=== PATIENT | male | born 1995 | race African-American/Black ===

== ENCOUNTER 2022-07-21 10:39 | Inpatient (IN) | payer OTHER ==
[2022-07-21 11:36] VITALS: BMI 25.2
[2022-07-21] MEDS ORDERED: MAG HYDROX/AL HYDROX/SIMETH 30 ML UNIT-DOSE CUP PO PRN (12:53)
[2022-07-21] MEDS ORDERED: POLYETHYLENE GLYCOL (HEALTHYLAX) 3350 17 GM PACKET PO PRN (12:53)
[2022-07-21] MEDS ORDERED: IBUPROFEN 400 MG TABLET (FP) PO PRN (12:53)
[2022-07-21] MEDS ORDERED: BISMUTH SUBSALICYLATE 524 MG/30 ML PO PRN (12:53)
[2022-07-21] MEDS ORDERED: MAGNESIUM HYDROX 2400MG/30ML ORAL SUSPENSION 30 ML CUP PO PRN (12:53)
[2022-07-21] MEDS ORDERED: ACETAMINOPHEN 325 MG TABLET (FP) PO PRN ×2 (12:53)
[2022-07-21] MEDS ORDERED: NALOXONE HCL (KLOXXADO) 8 MG SPRAY NS PRN (12:53)
[2022-07-21] MEDS ORDERED: ONDANSETRON *ODT* 4 MG TABLET SL PRN (12:53)
[2022-07-21] MEDS ORDERED: BENZOCAINE/MENTHOL (CHLORASEPTIC ) LOZENGE MM PRN (12:53)
[2022-07-21] MEDS ORDERED: DICYCLOMINE HCL 10 MG CAPSULE PO PRN (12:53)
[2022-07-21] MEDS ORDERED: LOPERAMIDE HCL 2 MG CAPSULE PO PRN (12:53)
[2022-07-21] MEDS: METHOCARBAMOL 500 MG TABLET PO PRN (13:58)
[2022-07-21] MEDS: IBUPROFEN 600 MG TABLET (FP) PO PRN (13:58)
[2022-07-21] MEDS: hydrOXYzine PAMOATE 25 MG CAPSULE (FP) PO PRN (13:58)
[2022-07-21] MEDS: chlordiazePOXIDE HCL 25 MG CAPSULE PO PRN (13:59)
[2022-07-21] MEDS ORDERED: ALBUTEROL SO4 HFA INHALER IH PRN (14:05)
[2022-07-21] MEDS: chlordiazePOXIDE HCL 25 MG CAPSULE PO SCH ×2 (18:23→22:24)
[2022-07-21] MEDS: THIAMINE HCL 100 MG TABLET (FP) PO SCH (22:23)
[2022-07-21] MEDS: DIVALPROEX SODIUM 500 MG TABLET E.C. PO SCH (22:23)
[2022-07-21] MEDS: risperiDONE 1 MG TABLET PO SCH (22:23)
[2022-07-21] MEDS: levETIRAcetam XR 750 MG TAB PO SCH (22:25)
[2022-07-21] MEDS: MELATONIN 5 MG TABLETS PO SCH (22:39)
[2022-07-22] MEDS: chlordiazePOXIDE HCL 25 MG CAPSULE PO SCH ×4 (05:56→22:32)
[2022-07-22] MEDS: IBUPROFEN 600 MG TABLET (FP) PO PRN (08:38)
[2022-07-22] MEDS: PRENATAL VITAMINS W/ FOLIC ACID TABLET (FP) PO SCH (10:09)
[2022-07-22] MEDS: risperiDONE 1 MG TABLET PO SCH ×2 (10:10→22:13)
[2022-07-22] MEDS: DIVALPROEX SODIUM 500 MG TABLET E.C. PO SCH ×2 (10:10→22:13)
[2022-07-22] MEDS: hydrOXYzine PAMOATE 25 MG CAPSULE (FP) PO PRN (10:10)
[2022-07-22] MEDS: levETIRAcetam XR 750 MG TAB PO SCH ×2 (10:10→22:14)
[2022-07-22] MEDS: METHOCARBAMOL 500 MG TABLET PO PRN (10:10)
[2022-07-22] MEDS: NICOTINE 10 MG CARTRIDGE (INHALER) IH PRN ×2 (10:13→21:09)
[2022-07-22] MEDS: NICOTINE POLACRILEX 4 MG GUM BUC PRN ×2 (10:48→22:38)
[2022-07-22 11:43] LABS: HEMATOCRIT 33.9 % (35.4-49); HEMOGLOBIN 11.3 GM/dL (11.7-16.9); MCH 26.7 pg (25.7-33.7); MCHC 33.4 g/dl (32.0-35.9); PLATELET COUNT 115 10^3/uL (134-434); RBC 4.25 M/mm3 (4.00-5.60); WHITE BLOOD COUNT 3.6 K/mm3 (4.0-10.0)
[2022-07-22 11:44] LABS: ALBUMIN 3.3 g/dl (3.4-5.0); BLOOD UREA NITROGEN 10.2 mg/dL (7-18); CALCIUM 8.6 mg/dL (8.5-10.1)
[2022-07-22 11:48] LABS: CREATININE 0.8 mg/dL (0.55-1.3)
[2022-07-22 11:49] LABS: BILIRUBIN,TOTAL 0.5 mg/dL (0.2-1); TOT PROT 6.6 g/dl (6.4-8.2)
[2022-07-22] MEDS: THIAMINE HCL 100 MG TABLET (FP) PO SCH (22:13)
[2022-07-22] MEDS: MELATONIN 5 MG TABLETS PO SCH (22:14)
[2022-07-22] MEDS: chlordiazePOXIDE HCL 25 MG CAPSULE PO PRN (22:15)
[2022-07-23] MEDS: NICOTINE 10 MG CARTRIDGE (INHALER) IH PRN ×3 (00:42→18:37)
[2022-07-23] MEDS: NICOTINE POLACRILEX 4 MG GUM BUC PRN ×4 (00:43→21:05)
[2022-07-23] MEDS: IBUPROFEN 600 MG TABLET (FP) PO PRN ×3 (01:12→21:42)
[2022-07-23] MEDS: METHOCARBAMOL 500 MG TABLET PO PRN ×2 (01:12→10:15)
[2022-07-23] MEDS: chlordiazePOXIDE HCL 25 MG CAPSULE PO SCH ×4 (06:38→23:20)
[2022-07-23] MEDS: DIVALPROEX SODIUM 500 MG TABLET E.C. PO SCH ×2 (10:15→21:42)
[2022-07-23] MEDS: levETIRAcetam XR 750 MG TAB PO SCH ×2 (10:15→21:44)
[2022-07-23] MEDS: hydrOXYzine PAMOATE 25 MG CAPSULE (FP) PO PRN ×2 (10:15→20:20)
[2022-07-23] MEDS: PRENATAL VITAMINS W/ FOLIC ACID TABLET (FP) PO SCH (10:15)
[2022-07-23] MEDS: risperiDONE 1 MG TABLET PO SCH ×2 (10:15→23:21)
[2022-07-23 21:31] VITALS: RESP 18
[2022-07-23] MEDS: THIAMINE HCL 100 MG TABLET (FP) PO SCH (21:42)
[2022-07-23] MEDS: MELATONIN 5 MG TABLETS PO SCH (22:27)
[2022-07-24] MEDS ORDERED: chlordiazePOXIDE HCL 10 MG CAPSULE PO PRN
[2022-07-24] MEDS: chlordiazePOXIDE HCL 10 MG CAPSULE PO SCH ×2 (05:00→10:32)
[2022-07-24] MEDS: risperiDONE 1 MG TABLET PO SCH (09:21)
[2022-07-24] MEDS: levETIRAcetam XR 750 MG TAB PO SCH (09:21)
[2022-07-24] MEDS: DIVALPROEX SODIUM 500 MG TABLET E.C. PO SCH (09:21)
[2022-07-24] MEDS: PRENATAL VITAMINS W/ FOLIC ACID TABLET (FP) PO SCH (09:27)
[2022-07-24 20:45] VITALS: BP 120/77; PULSE 108; TEMP 98.2
[2022-07-25] MEDS ORDERED: chlordiazePOXIDE HCL 10 MG CAPSULE PO SCH (05:00)
[2022-07-26] MEDS ORDERED: chlordiazePOXIDE HCL 10 MG CAPSULE PO ONE (05:00)
== END 2022-07-24 23:00 | disposition short-term general hospital (02) | DRG 775 ==
LOC: YASAS 10:39 → Y6N 13:13
PROVIDERS: ADMIT Allergy & Immunology; ATTEND Internal Medicine
PROC: HZ2ZZZZ Detoxification Services for Substance Abuse Treatment (ICD-10-PCS; principal; 2022-07-21)
DX: F10.230 Alcohol dependence with withdrawal, uncomplicated (principal); F13.230 Sedative, hypnotic or anxiolytic dependence with withdrawal, uncomplicated; F17.210 Nicotine dependence, cigarettes, uncomplicated; F20.9 Schizophrenia, unspecified; R56.9 Unspecified convulsions; S89.91XA Unspecified injury of right lower leg, initial encounter; S09.93XA Unspecified injury of face, initial encounter; W19.XXXA Unspecified fall, initial encounter; Y92.232 Corridor of hospital as the place of occurrence of the external cause
CPT/HCPCS: 36415; 80053; 80164; 85027; 86780; 87811; 93005; 93010; C9803-CS; J2794; Q0162; U0003; U0005

== ENCOUNTER 2022-07-24 00:27 | Emergency (ER) | payer OTHER ==
[2022-07-24] MEDS ORDERED: ACETAMINOPHEN 325 MG TABLET (FP) PO ONE (00:59)
[2022-07-24 01:00] VITALS: BP 102/85; PULSE 89; RESP 17; TEMP 97.3; BMI 25.2
== END 2022-07-24 03:42 | disposition home or self-care (01) ==
LOC: JER 00:27
DX: S00.03XA Contusion of scalp, initial encounter (principal); M25.561 Pain in right knee; W01.0XXA Fall on same level from slipping, tripping and stumbling without subsequent striking against object, initial encounter
CPT/HCPCS: 70450-TC; 72125-TC; 73562-TC-RT-FY; 82962; 99285-25

== ENCOUNTER 2022-07-24 09:51 | Inpatient (IN) | payer OTHER ==
[2022-07-24] MEDS ORDERED: LORazepam 2 MG/ML SDV VIAL IVPUSH ONE (10:44)
[2022-07-24 10:50] LABS: BASO % 0.2 % (0-2.0); EOS % 0.7 % (0-4.5); HEMATOCRIT 40.1 % (35.4-49); HEMOGLOBIN 12.9 GM/dL (11.7-16.9); LYMPH % 11.8 % (8-40); MCH 25.8 pg (25.7-33.7); MCHC 32.1 g/dl (32.0-35.9); MEAN CELL VOLUME 80.5 fl (80-96); MEAN PLT VOLUME 9.8 fl (7.5-11.1); MONO % 5.2 % (3.8-10.2); NEUT % 82.1 % (42.8-82.8); PLATELET COUNT 116 10^3/uL (134-434); RBC 4.99 M/mm3 (4.00-5.60); RDW 15.2 % (11.9-15.9); WHITE BLOOD COUNT 7.1 K/mm3 (4.0-10.0)
[2022-07-24 11:12] LABS: ALBUMIN 3.8 g/dl (3.4-5.0); CALCIUM 9.3 mg/dL (8.5-10.1)
[2022-07-24 11:13] LABS: BLOOD UREA NITROGEN 9.5 mg/dL (7-18)
[2022-07-24 11:15] LABS: CREATININE 0.8 mg/dL (0.55-1.3)
[2022-07-24 11:17] LABS: BILIRUBIN,TOTAL 0.2 mg/dL (0.2-1); TOT PROT 7.8 g/dl (6.4-8.2)
[2022-07-24] MEDS ORDERED: SODIUM CHLORIDE 0.9% 500 ML INFUS.BAG IV ONE ×2 (12:19→15:23)
[2022-07-24] MEDS ORDERED: ALBUTEROL SO4 HFA INHALER IH PRN ×2 (12:47→12:54)
[2022-07-24 13:08] LABS: URINE APPEARANCE CLEAR; URINE BILIRUBIN NEGATIVE (NEGATIVE); URINE COLOR YELLOW; URINE GLUCOSE (UA) NEGATIVE (NEGATIVE); URINE KETONE NEGATIVE (NEGATIVE); URINE LEUK ESTERASE NEGATIVE (NEGATIVE); URINE NITRITE NEGATIVE (NEGATIVE); URINE PROTEIN NEGATIVE (NEGATIVE); URINE UROBILINOGEN 0.2 mg/dL (0.2-1.0)
[2022-07-24 13:58] LABS: MAGNESIUM 2.1 mg/dL (1.8-2.4)
[2022-07-24 13:58] LABS: COCAINE, UR NEGATIVE (NEGATIVE); METHADONE, UR NEGATIVE (NEGATIVE); OPIATES, URI NEGATIVE (NEGATIVE); PHENCYCLIDINE,URINE NEGATIVE (NEGATIVE); URINE BARBITURATES NEGATIVE (NEGATIVE)
[2022-07-24 13:59] LABS: PHOSPHOROUS 2.6 mg/dL (2.5-4.9)
[2022-07-24 14:05] LABS: URINE AMPHETAMINES NEGATIVE (NEGATIVE); URINE BENZODIAZEPINES POSITIVE (NEGATIVE)
[2022-07-24] MEDS: D5-1/2NS+10 MEQ KCL - 10 MEQ/1,000 ML INFUS.BAG IV SCH (16:35)
[2022-07-24] MEDS ORDERED: SODIUM CHLORIDE 1,000 ML IV STA (17:08)
[2022-07-24] MEDS ORDERED: THIAMINE HCL 200 MG/2 ML VIAL IVPB ONE (20:24)
[2022-07-24] MEDS ORDERED: THIAMINE HCL 200 MG/2 ML VIAL ONE (20:57)
[2022-07-24] MEDS: DIVALPROEX SODIUM 500 MG TABLET E.C. PO SCH (23:24)
[2022-07-25] MEDS: D5-1/2NS+10 MEQ KCL - 10 MEQ/1,000 ML INFUS.BAG IV SCH ×2 (03:28→14:38)
[2022-07-25 06:13] VITALS: TEMP 97.9
[2022-07-25 08:21] VITALS: BMI 26.6
[2022-07-25] MEDS: DIVALPROEX SODIUM 500 MG TABLET E.C. PO SCH (09:41)
[2022-07-25] MEDS ORDERED: NICOTINE POLACRILEX 2 MG GUM BUC PRN (09:53)
[2022-07-25] MEDS ORDERED: levETIRAcetam 500 MG TABLET (FP) PO SCH (10:00)
[2022-07-25 11:41] LABS: BASO % 0.2 % (0-2.0); EOS % 1.2 % (0-4.5); HEMOGLOBIN 11.3 GM/dL (11.7-16.9); LYMPH % 15.6 % (8-40); MCH 26.2 pg (25.7-33.7); MCHC 33.2 g/dl (32.0-35.9); MEAN CELL VOLUME 79.2 fl (80-96); MEAN PLT VOLUME 9.5 fl (7.5-11.1); MONO % 5.7 % (3.8-10.2); NEUT % 77.3 % (42.8-82.8); PLATELET COUNT 112 10^3/uL (134-434); RBC 4.29 M/mm3 (4.00-5.60); RDW 15.2 % (11.9-15.9); WHITE BLOOD COUNT 7.8 K/mm3 (4.0-10.0)
[2022-07-25 12:19] LABS: ALBUMIN 3.2 g/dl (3.4-5.0)
[2022-07-25 12:20] LABS: BLOOD UREA NITROGEN 4.1 mg/dL (7-18); CREATININE 0.6 mg/dL (0.55-1.3)
[2022-07-25 12:21] LABS: CALCIUM 9.2 mg/dL (8.5-10.1)
[2022-07-25 12:25] LABS: BILIRUBIN,TOTAL 0.4 mg/dL (0.2-1); TOT PROT 6.7 g/dl (6.4-8.2)
[2022-07-25] MEDS: NICOTINE POLACRILEX 2 MG GUM BUC PRN ×2 (12:31→14:38)
[2022-07-25 13:42] VITALS: BP 108/50; PULSE 100; RESP 16
== END 2022-07-25 18:20 | disposition home or self-care (01) | DRG 53 ==
LOC: JER 09:51 → JERBED 11:14 → INTOOBSV 11:14 → OBSVTOIN 12:49 → J5S 23:14 → J7W 07-25 13:52
PROVIDERS: ADMIT Internal Medicine; ATTEND Internal Medicine
DX: G40.901 Epilepsy, unspecified, not intractable, with status epilepticus (principal); F10.251 Alcohol dependence with alcohol-induced psychotic disorder with hallucinations; F20.9 Schizophrenia, unspecified; F17.210 Nicotine dependence, cigarettes, uncomplicated; F10.20 Alcohol dependence, uncomplicated; I95.9 Hypotension, unspecified; F13.10 Sedative, hypnotic or anxiolytic abuse, uncomplicated
CPT/HCPCS: 0241U-QW; 36415; 70450-TC; 71045-TC-FY; 80053; 80177; 80307; 81003; 82550; 82962; 83605; 83735; 84100; 85025; 87086; 93005; 93010; 99285-25; G0378

== ENCOUNTER 2022-08-08 10:20 | Inpatient (IN) | payer OTHER ==
[2022-08-08 11:06] VITALS: BMI 25.2
[2022-08-08] MEDS ORDERED: hydrOXYzine PAMOATE 25 MG CAPSULE (FP) PO PRN (12:31)
[2022-08-08] MEDS ORDERED: ONDANSETRON *ODT* 4 MG TABLET SL PRN (12:31)
[2022-08-08] MEDS ORDERED: MAGNESIUM HYDROX 2400MG/30ML ORAL SUSPENSION 30 ML CUP PO PRN (12:31)
[2022-08-08] MEDS ORDERED: BENZOCAINE/MENTHOL (CHLORASEPTIC ) LOZENGE MM PRN (12:31)
[2022-08-08] MEDS ORDERED: ACETAMINOPHEN 325 MG TABLET (FP) PO PRN ×2 (12:31)
[2022-08-08] MEDS ORDERED: MAG HYDROX/AL HYDROX/SIMETH 30 ML UNIT-DOSE CUP PO PRN (12:31)
[2022-08-08] MEDS ORDERED: diazePAM 5 MG TABLET PO PRN (12:31)
[2022-08-08] MEDS ORDERED: POLYETHYLENE GLYCOL (HEALTHYLAX) 3350 17 GM PACKET PO PRN (12:31)
[2022-08-08] MEDS ORDERED: LOPERAMIDE HCL 2 MG CAPSULE PO PRN (12:31)
[2022-08-08] MEDS ORDERED: BISMUTH SUBSALICYLATE 262 MG/15 ML BTL PO PRN (12:31)
[2022-08-08] MEDS ORDERED: METHOCARBAMOL 500 MG TABLET PO PRN (12:31)
[2022-08-08] MEDS ORDERED: NALOXONE HCL (KLOXXADO) 8 MG SPRAY NS PRN (12:31)
[2022-08-08] MEDS ORDERED: IBUPROFEN 600 MG TABLET (FP) PO PRN (12:31)
[2022-08-08] MEDS ORDERED: DICYCLOMINE HCL 10 MG CAPSULE PO PRN (12:31)
[2022-08-08] MEDS ORDERED: IBUPROFEN 400 MG TABLET (FP) PO PRN (12:31)
[2022-08-08] MEDS ORDERED: ALBUTEROL SO4 HFA INHALER IH PRN (12:45)
[2022-08-08] MEDS: NICOTINE 14 MG/24 HOURS TOPICAL PATCH TD SCH (12:49)
[2022-08-08] MEDS: PRENATAL VITAMINS W/ FOLIC ACID TABLET (FP) PO SCH (12:49)
[2022-08-08] MEDS: diazePAM 5 MG TABLET PO SCH ×2 (17:47→22:01)
[2022-08-08] MEDS: NICOTINE POLACRILEX 2 MG GUM BUC PRN ×2 (18:01→22:02)
[2022-08-08] MEDS ORDERED: MELATONIN 5 MG TABLETS PO SCH (22:00)
[2022-08-08] MEDS ORDERED: THIAMINE HCL 100 MG TABLET (FP) PO SCH (22:00)
[2022-08-08] MEDS: NICOTINE 10 MG CARTRIDGE (INHALER) IH PRN (22:05)
[2022-08-09] MEDS: diazePAM 5 MG TABLET PO SCH ×2 (06:13→10:12)
[2022-08-09] MEDS ORDERED: PANTOPRAZOLE 20 MG TABLET PO SCH (10:00)
[2022-08-09] MEDS: PRENATAL VITAMINS W/ FOLIC ACID TABLET (FP) PO SCH (10:12)
[2022-08-09] MEDS: NICOTINE POLACRILEX 2 MG GUM BUC PRN (10:17)
[2022-08-09 10:40] VITALS: BP 138/71; PULSE 109; RESP 18; TEMP 97.6
[2022-08-09] MEDS: NICOTINE 14 MG/24 HOURS TOPICAL PATCH TD SCH (11:04)
[2022-08-09] MEDS: NICOTINE 10 MG CARTRIDGE (INHALER) IH PRN (11:04)
[2022-08-09] MEDS ORDERED: levETIRAcetam 250 MG TABLET PO SCH (12:30)
[2022-08-10] MEDS ORDERED: diazePAM 5 MG TABLET PO SCH (06:00)
[2022-08-11] MEDS ORDERED: diazePAM 5 MG TABLET PO SCH (06:00)
[2022-08-12] MEDS ORDERED: diazePAM 5 MG TABLET PO ONE (06:00)
== END 2022-08-09 12:22 | disposition left against medical advice (07) | DRG 770 ==
LOC: YASAS 10:20 → Y6N 11:54
PROVIDERS: ADMIT Allergy & Immunology; ATTEND Surgery
PROC: HZ2ZZZZ Detoxification Services for Substance Abuse Treatment (ICD-10-PCS; principal; 2022-08-08)
DX: F10.230 Alcohol dependence with withdrawal, uncomplicated (principal); F12.20 Cannabis dependence, uncomplicated; F17.210 Nicotine dependence, cigarettes, uncomplicated; F20.9 Schizophrenia, unspecified; F41.9 Anxiety disorder, unspecified; J45.909 Unspecified asthma, uncomplicated; Z86.69 Personal history of other diseases of the nervous system and sense organs; Z91.040 Latex allergy status
CPT/HCPCS: C9803-CS; U0003; U0005

== ENCOUNTER 2023-12-18 11:24 | Inpatient (IN) | payer OTHER ==
[2023-12-18 12:47] VITALS: BMI 22.8
[2023-12-18] MEDS ORDERED: chlordiazePOXIDE HCL 25 MG CAPSULE PO PRN (13:10)
[2023-12-18] MEDS ORDERED: DICYCLOMINE HCL 10 MG CAPSULE PO PRN (13:28)
[2023-12-18] MEDS ORDERED: ONDANSETRON *ODT* 4 MG TABLET SL PRN (13:28)
[2023-12-18] MEDS ORDERED: MAG HYDROX/AL HYDROX/SIMETH 30 ML UNIT-DOSE CUP PO PRN (13:28)
[2023-12-18] MEDS ORDERED: POLYETHYLENE GLYCOL (HEALTHYLAX) 3350 17 GM PACKET PO PRN (13:28)
[2023-12-18] MEDS ORDERED: METHOCARBAMOL 500 MG TABLET PO PRN (13:28)
[2023-12-18] MEDS ORDERED: IBUPROFEN 400 MG TABLET (FP) PO PRN (13:28)
[2023-12-18] MEDS ORDERED: ACETAMINOPHEN 325 MG TABLET (FP) PO PRN (13:28)
[2023-12-18] MEDS ORDERED: hydrOXYzine PAMOATE 25 MG CAPSULE (FP) PO PRN (13:28)
[2023-12-18] MEDS ORDERED: MAGNESIUM HYDROX 2400MG/30ML ORAL SUSPENSION 30 ML CUP PO PRN (13:28)
[2023-12-18] MEDS ORDERED: BENZOCAINE/MENTHOL (CHLORASEPTIC ) LOZENGE MM PRN (13:28)
[2023-12-18] MEDS ORDERED: LOPERAMIDE HCL 2 MG CAPSULE PO PRN (13:28)
[2023-12-18] MEDS ORDERED: BISMUTH SUBSALICYLATE 524 MG/30 ML PO PRN (13:28)
[2023-12-18] MEDS ORDERED: BENZONATATE 200 MG CAPSULE PO PRN (13:28)
[2023-12-18] MEDS ORDERED: IBUPROFEN 600 MG TABLET (FP) PO PRN (13:28)
[2023-12-18] MEDS ORDERED: guaiFENesin 600 MG TABLET.ER (FP) PO PRN (13:28)
[2023-12-18] MEDS: NICOTINE POLACRILEX 2 MG GUM BUC PRN (15:16)
[2023-12-18 16:49] VITALS: BP 117/58; PULSE 86; RESP 16; TEMP 97.8
[2023-12-18] MEDS ORDERED: chlordiazePOXIDE HCL 25 MG CAPSULE PO SCH (17:00)
[2023-12-18] MEDS ORDERED: THIAMINE HCL 100 MG TABLET (FP) PO SCH (22:00)
[2023-12-18] MEDS ORDERED: MELATONIN 5 MG TABLETS PO SCH (22:00)
[2023-12-19] MEDS ORDERED: PRENATAL VITAMINS W/ FOLIC ACID TABLET (FP) PO SCH (10:00)
[2023-12-19] MEDS ORDERED: PNEUMOC 20-VAL CONJ-DIP CRM/PF 0.5 ML SYRINGE IM ONE (12:00)
[2023-12-19] MEDS ORDERED: FLU VACCINE (FLULAVAL) PF 60 MCG/0.5 ML SYRINGE 2023-2024 IM ONE (12:00)
[2023-12-20] MEDS ORDERED: chlordiazePOXIDE HCL 25 MG CAPSULE PO SCH (05:00)
[2023-12-21] MEDS ORDERED: chlordiazePOXIDE HCL 10 MG CAPSULE PO PRN
[2023-12-21] MEDS ORDERED: chlordiazePOXIDE HCL 10 MG CAPSULE PO SCH (05:00)
[2023-12-22] MEDS ORDERED: chlordiazePOXIDE HCL 10 MG CAPSULE PO SCH (05:00)
[2023-12-23] MEDS ORDERED: chlordiazePOXIDE HCL 10 MG CAPSULE PO ONE (05:00)
== END 2023-12-18 16:47 | disposition left against medical advice (07) | DRG 770 ==
LOC: YASAS 11:24 → Y6N 14:01
PROVIDERS: ADMIT Allergy & Immunology; ATTEND Surgery
PROC: HZ2ZZZZ Detoxification Services for Substance Abuse Treatment (ICD-10-PCS; principal; 2023-12-18)
DX: F10.230 Alcohol dependence with withdrawal, uncomplicated (principal); F14.20 Cocaine dependence, uncomplicated; F17.210 Nicotine dependence, cigarettes, uncomplicated; G40.909 Epilepsy, unspecified, not intractable, without status epilepticus; Z87.09 Personal history of other diseases of the respiratory system; Z56.0 Unemployment, unspecified
CPT/HCPCS: 36415; 80307; 93005; 93010

== ENCOUNTER 2024-01-14 11:20 | Inpatient (IN) | payer OTHER ==
[2024-01-14 13:12] VITALS: BMI 25.4
[2024-01-14] MEDS ORDERED: IBUPROFEN 400 MG TABLET (FP) PO PRN (14:07)
[2024-01-14] MEDS ORDERED: NALOXONE HCL (KLOXXADO) 8 MG SPRAY NS PRN (14:07)
[2024-01-14] MEDS ORDERED: POLYETHYLENE GLYCOL (HEALTHYLAX) 3350 17 GM PACKET PO PRN (14:07)
[2024-01-14] MEDS ORDERED: hydrOXYzine PAMOATE 25 MG CAPSULE (FP) PO PRN (14:07)
[2024-01-14] MEDS ORDERED: BENZOCAINE/MENTHOL (CHLORASEPTIC ) LOZENGE MM PRN (14:07)
[2024-01-14] MEDS ORDERED: MAG HYDROX/AL HYDROX/SIMETH 30 ML UNIT-DOSE CUP PO PRN (14:07)
[2024-01-14] MEDS ORDERED: NALOXONE HCL 0.4 MG/ML VIAL IM PRN (14:07)
[2024-01-14] MEDS ORDERED: IBUPROFEN 600 MG TABLET (FP) PO PRN (14:07)
[2024-01-14] MEDS ORDERED: BISMUTH SUBSALICYLATE 262 MG/15 ML BTL PO PRN (14:07)
[2024-01-14] MEDS ORDERED: BENZONATATE 200 MG CAPSULE PO PRN (14:07)
[2024-01-14] MEDS ORDERED: METHOCARBAMOL 500 MG TABLET PO PRN (14:07)
[2024-01-14] MEDS ORDERED: guaiFENesin 600 MG TABLET.ER (FP) PO PRN (14:07)
[2024-01-14] MEDS ORDERED: DICYCLOMINE HCL 10 MG CAPSULE PO PRN (14:07)
[2024-01-14] MEDS ORDERED: LOPERAMIDE HCL 2 MG CAPSULE PO PRN (14:07)
[2024-01-14] MEDS ORDERED: chlordiazePOXIDE HCL 25 MG CAPSULE PO PRN (15:41)
[2024-01-14] MEDS: ALBUTEROL SO4 HFA INHALER IH SCH (15:55)
[2024-01-14] MEDS: NICOTINE POLACRILEX 4 MG GUM BUC PRN (17:40)
[2024-01-14] MEDS: chlordiazePOXIDE HCL 25 MG CAPSULE PO SCH (17:41)
[2024-01-14] MEDS: ACETAMINOPHEN 325 MG TABLET (FP) PO PRN (18:18)
[2024-01-14] MEDS ORDERED: DIVALPROEX SODIUM 500 MG TABLET E.C. PO SCH (22:00)
[2024-01-14] MEDS: levETIRAcetam 250 MG TABLET PO SCH (22:33)
[2024-01-14] MEDS: LACOSAMIDE 50 MG TABLET PO SCH (22:34)
[2024-01-14] MEDS: THIAMINE 100 MG TABLET PO SCH (22:34)
[2024-01-14] MEDS: MELATONIN 5 MG TABLETS PO SCH (22:39)
[2024-01-15] MEDS: PRENATAL VITAMINS W/ FOLIC ACID TABLET (FP) PO SCH (09:37)
[2024-01-15] MEDS: PANTOPRAZOLE 20 MG TABLET PO SCH (09:37)
[2024-01-15] MEDS: MAGNESIUM HYDROX 2400MG/30ML ORAL SUSPENSION 30 ML CUP PO PRN (13:26)
[2024-01-15] MEDS: ONDANSETRON *ODT* 4 MG TABLET SL PRN (16:04)
[2024-01-15 20:04] VITALS: BP 111/67; PULSE 89; TEMP 97.5
[2024-01-15 23:18] VITALS: RESP 8
[2024-01-16] MEDS: chlordiazePOXIDE HCL 25 MG CAPSULE PO SCH (06:00)
[2024-01-17] MEDS ORDERED: chlordiazePOXIDE HCL 10 MG CAPSULE PO PRN
[2024-01-17] MEDS ORDERED: chlordiazePOXIDE HCL 10 MG CAPSULE PO SCH (05:00)
[2024-01-18] MEDS ORDERED: chlordiazePOXIDE HCL 10 MG CAPSULE PO SCH (05:00)
[2024-01-19] MEDS ORDERED: chlordiazePOXIDE HCL 10 MG CAPSULE PO ONE (05:00)
== END 2024-01-16 07:16 | disposition short-term general hospital (02) | DRG 774 ==
LOC: YASAS 11:20 → Y6N 14:47
PROVIDERS: ADMIT Allergy & Immunology; ATTEND Surgery
PROC: HZ2ZZZZ Detoxification Services for Substance Abuse Treatment (ICD-10-PCS; principal; 2024-01-14)
DX: F10.230 Alcohol dependence with withdrawal, uncomplicated (principal); F14.20 Cocaine dependence, uncomplicated; F17.210 Nicotine dependence, cigarettes, uncomplicated; F19.280 Other psychoactive substance dependence with psychoactive substance-induced anxiety disorder; F19.282 Other psychoactive substance dependence with psychoactive substance-induced sleep disorder; G40.909 Epilepsy, unspecified, not intractable, without status epilepticus; J45.909 Unspecified asthma, uncomplicated; Z88.8 Allergy status to other drugs, medicaments and biological substances; Z91.51 Personal history of suicidal behavior
CPT/HCPCS: 80305; 93005; 93010; Q0162